=== PATIENT | female | born 1970 | race Caucasian/White ===

== ENCOUNTER → 2017-01-22 | Outpatient (CLI) | payer OTHER ==
[~2017-01-22] MED LIST: ALBUAER INH; ANAS1TAB6 PO; CALC500T83 PO; CHOL2000 PO; GADAVIST IV PRN; LORA-339 PO; VENL75TA4 PO; VITBC PO; ZNTT/150 PO
--- NOTE | 2017-01-24 07:53 | MAMMOGRAPHY REPORT ---
BREAST MRI OF BOTH BREASTS : 01/22/2017 CLINICAL HISTORY: 46-year-old woman with a personal history of left breast carcinoma diagnosed in 201 3. She first underwent a left mastectomy and then right mastectomy in 2014, with bilateral silicone implant reconstruction. 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 She presents to assess implant integrity and exclude any abnormal enha ncement. COMPARISON: No prior exams were available for comparison. TECHNIQUE: Using a 1.5 Simran magnet and dedicated breast coil, multisequence axial images were obtain ed through the breasts. After uneventful IV administration of 12 mL of Gadavist, dynamic multiphase contrast-enhanced axial images, and sagittal postcontrast were obtained. Temporal subtraction axial images and 3-D MIP images are provided. Additional silicone sensitive sequences were obtained in the sagittal and axial plane. Everything was then reviewed on a 3-D workstation, [employer]. It should be n oted there is partial failure of fat saturation in the axial T2 FSE silicone sensitive sequences, but implant integrity is still adequately assessed in the sagittal plane and on the axial T1 nonfat satu rated images. FINDINGS: Right breast: There is no evidence of intracapsular or extracapsular rupture of the right subpectoral silicone implant. A few small radial folds are identified. No enhancing mass or suspicious non-mas s enhancement is seen in the remaining subcutaneous tissues of the reconstructed right breast. There is asymmetric focal skin thickening, edema and enhancement in the lower inner quadrant of the right breast. Based on the sagittal view this may be along the surgical scar. The skin thickening measure s up to 4.8 mm and clinical correlation is recommended. Differential considerations include scarring , radiation change, infection and inflammation. No fluid collection is currently identified. A few small lymph nodes are noted in the right axilla which maintain fatty jl. Left breast: There is no evidence of intra-or extracapsular rupture of the left subpectoral silicone implant. There is a complex radial fold along the anterior superior aspect of the implant. No suspi cious enhancing mass or non-mass enhancement in the visualized remaining subcutaneous soft tissues of the reconstructed left breast. There are a few slightly prominent and asymmetric left axillary lymp h nodes when comparing to the right. A lymph node in the superior axilla measures 9 mm and no fatty hilum is appreciated. A slightly larger lobulated lymph node is seen inferior to the first measuring 20 x 7 mm. Targeted left axillary ultrasound is recommended for further characterization and to ass ess lymph node morphology. Other: There is asymmetric in enlargement of the left thyroid lobe, measuring up to 19 mm, and possib ly containing an internal hypoenhancing nodule. Correlation with any prior outside imaging is recomm ended. If none available, consider further evaluation with a dedicated thyroid ultrasound. IMPRESSION: ACR BI-RADS CATEGORY 0: INCOMPLETE EVALUATION: NEED ADDITIONAL IMAGING EVALUATION 1. A few slightly prominent left axillary lymph nodes, asymmetric compared to the right and do not d efinitely maintain fatty jl. Targeted left axillary ultrasound is recommended for further characte rization. 2. Focal skin thickening, edema and enhancement in the lower inner quadrant of the right breast clin ical correlation is recommended as this could represent asymmetric scarring, infection, inflammation or radiation change. 3. Asymmetric enlargement of the left thyroid lobe measuring 19 mm with possible nonenhancing sourcing internship al nodule. If no prior outside imaging is available, consider further characterization with a thyroi d ultrasound. 4. Status post bilateral mastectomy with silicone implant reconstruction. No intra-or extracapsular implant rupture identified bilaterally. The patient will be called to schedule an appointment. Claudia Anand M.D. 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
== END | disposition home or self-care (01) ==
LOC: C.MRI 14:54
PROVIDERS: ATTEND Plastic Surgery
DX: Z42.1 Encounter for breast reconstruction following mastectomy (principal); Z85.3 Personal history of malignant neoplasm of breast; R59.0 Localized enlarged lymph nodes